=== PATIENT | female | born 1955 | race Caucasian/White ===

== ENCOUNTER 2017-08-24 10:24 | Emergency (ER) | payer BC ==
[~2017-08-24] VITALS: Ht 167.6 cm; Wt 67.3 kg
[2017-08-24 10:32] VITALS: TEMP 98.1
[2017-08-24] MEDS ORDERED: PROAIR HFA0.09 MG/AC PO (10:36)
[2017-08-24] MEDS ORDERED: CLEOCIN HCL300 MG PO (12:44)
[2017-08-24] MEDS ORDERED: ZOFRAN ODT4 MG PO (12:44)
[2017-08-24] MEDS ORDERED: PERCOCET 325 MG1 TA2 PO (12:44)
[2017-08-24 13:09] VITALS: BP 124/83; PULSE 90
== END 2017-08-24 13:10 | disposition home or self-care (01) ==
LOC: COL.ER 10:24
DX: G89.18 Other acute postprocedural pain (principal); M79.672 Pain in left foot; L03.116 Cellulitis of left lower limb